=== PATIENT | female | born 1950 | race Caucasian/White ===

== ENCOUNTER 2016-05-19 09:27 | Outpatient (RCR) | payer MEDICARE, BC | END 2016-06-11 15:26 | LOC: OPPGERO 09:27 | DX: F33.9 Major depressive disorder, recurrent, unspecified (principal); F41.1 Generalized anxiety disorder ==

== ENCOUNTER 2016-06-14 08:11 | Outpatient (RCR) | payer MEDICARE, BC | END 2016-07-14 16:48 | LOC: OPPGERO 08:11 | DX: F33.9 Major depressive disorder, recurrent, unspecified (principal); F41.1 Generalized anxiety disorder ==

== ENCOUNTER 2016-07-15 11:05 | Outpatient (RCR) | payer MEDICARE, BC | END 2016-08-13 15:49 | LOC: OPPGERO 11:05 | DX: F33.9 Major depressive disorder, recurrent, unspecified (principal); F41.1 Generalized anxiety disorder ==

== ENCOUNTER 2016-08-16 08:38 | Outpatient (RCR) | payer MEDICARE, BC | END 2016-09-13 15:00 | LOC: OPPGERO 08:38 | DX: F33.9 Major depressive disorder, recurrent, unspecified (principal); F41.1 Generalized anxiety disorder ==

== ENCOUNTER 2016-09-14 08:47 | Outpatient (RCR) | payer MEDICARE, BC | END 2016-10-14 14:31 | disposition still patient (30) | LOC: OPPGERO 08:47 | DX: F33.9 Major depressive disorder, recurrent, unspecified (principal); F41.1 Generalized anxiety disorder ==

== ENCOUNTER 2016-10-15 07:52 | Outpatient (RCR) | payer MEDICARE, BC | END 2016-11-12 15:14 | LOC: OPPGERO 07:52 | DX: F33.9 Major depressive disorder, recurrent, unspecified (principal); F41.1 Generalized anxiety disorder ==

== ENCOUNTER 2016-11-14 09:00 | Outpatient (RCR) | payer MEDICARE, BC | END 2016-12-14 16:18 | disposition still patient (30) | LOC: OPPGERO 09:00 | DX: F33.9 Major depressive disorder, recurrent, unspecified (principal); F41.1 Generalized anxiety disorder ==

== ENCOUNTER 2016-12-15 08:54 | Outpatient (RCR) | payer MEDICARE, BC | END 2017-01-13 12:54 | LOC: OPPGERO 08:54 | DX: F33.9 Major depressive disorder, recurrent, unspecified (principal); F41.9 Anxiety disorder, unspecified ==

== ENCOUNTER 2017-02-15 09:00 | Outpatient (RCR) | payer MEDICARE, BC | END 2017-03-16 15:20 | LOC: OPPGERO 09:00 | DX: F33.1 Major depressive disorder, recurrent, moderate (principal); F41.9 Anxiety disorder, unspecified ==

== ENCOUNTER 2017-03-17 10:29 | Outpatient (RCR) | payer MEDICARE, BC | END 2017-04-13 14:14 | LOC: OPPGERO 10:29 | DX: F33.1 Major depressive disorder, recurrent, moderate (principal); F41.1 Generalized anxiety disorder; M79.7 Fibromyalgia; I10 Essential (primary) hypertension; E78.5 Hyperlipidemia, unspecified; Z79.82 Long term (current) use of aspirin; Z88.5 Allergy status to narcotic agent ==

== ENCOUNTER 2017-04-14 10:02 | Outpatient (RCR) | payer MEDICARE, BC | END 2017-05-13 11:22 | LOC: OPPGERO 10:02 | DX: F33.1 Major depressive disorder, recurrent, moderate (principal); F41.1 Generalized anxiety disorder; M79.7 Fibromyalgia; E78.5 Hyperlipidemia, unspecified; I10 Essential (primary) hypertension; Z79.01 Long term (current) use of anticoagulants; Z79.82 Long term (current) use of aspirin; Z88.5 Allergy status to narcotic agent ==